=== PATIENT | female | born 1965 | race African-American/Black ===

== ENCOUNTER 2020-08-08 08:14 | Emergency (ER) | payer BC ==
[~2020-08-08] VITALS: Ht 162.6 cm; Wt 77.1 kg
[2020-08-08] MEDS ORDERED: NORVASC5 MG PO (09:06)
[2020-08-08] MEDS ORDERED: PROAIR HFA8.5 GM INH (09:06)
[2020-08-08] MEDS ORDERED: HYDROCHLOROTH12.5 M1 PO ×2 (09:06→11:07)
[2020-08-08 09:35] LABS: ABSOLUTE NEUTROPHILS 4.1 thou/uL (1.4-8.2); BASOPHILS 1.3 % (0.0-2.0); EOSINOPHILS 1.9 % (0.0-3.0); HEMATOCRIT 39.4 % (37.0-47.0); HEMOGLOBIN 13.2 gm/dL (12.0-15.0); LYMPHOCYTES 37.7 % (24.0-44.0); MCHC 33.4 g/dL (28.0-37.0); MCV 92.8 fL (80.0-100.0); MONOCYTES 6.5 % (1.0-8.0); PLATELET COUNT 262 thou/uL (150-400); POLYS 52.6 % (36.0-66.0); RBC 4.25 mil/uL (4.20-5.00); RDW 13.1 % (10.5-14.5); WBC 7.7 thou/uL (4.0-11.0)
[2020-08-08 10:34] LABS: ANION GAP 10 mmol/L (7-16); BUN 17 mg/dL (7-18); CALCIUM 9.5 mg/dL (8.5-10.1); CHLORIDE 101 mmol/L (98-107); CO2 28 mmol/L (21-32); GLUCOSE 123 mg/dL (74-106); POTASSIUM 3.6 mmol/L (3.5-5.1); SODIUM 139 mmol/L (136-145)
[2020-08-08 10:44] LABS: ALBUMIN 4.1 g/dL (3.4-5.0); DIRECT BILIRUBIN 0.1 mg/dL (<0.1-0.2); SGOT 79 U/L (15-37); SGPT 61 U/L (14-59); TOTAL BILIRUBIN 0.4 mg/dL (0.2-1.0); TOTAL PROTEIN 8.4 g/dL (6.4-8.2); TROPONIN-I <0.06 ng/mL (<0.06)
[2020-08-08 11:32] VITALS: BP 163/79
--- NOTE | 2020-08-08 14:44 | EKG ---
[address] [address] ELECTROCARDIOGRAM REPORT Name: BRIDGETT TABOR Room #: [facility] FELIZ [place]#: [id number] Admission: 08/08/20 Attend Phys: Discharge: 08/08/20 Date of : 61 Report #: [id number] [facility] ED Test Date: 2020-08-08 Test Time: 08:23:43 Pat Name: BRIDGETT TABOR Department: Room: Gender: F Bar Assistant: CHARI : 1965 Requested By: Irene Nichole Order Number: [id number] MD: Rony Bajwa Measurements Intervals [place] Rate: 83 P: 87 CA: 155 QRS: 50 QRSD: 82 T: 24 QT: 375 QTc: 441 Interpretive Statements Sinus rhythm Probable left atrial enlargement No previous ECG available for comparison Electronically Signed On 08-08-2020 14:43:59 CDT by Rony Bajwa [email or web address] <ELECTRONICALLY SIGNED> By: Rony Bajwa MD, [facility] 08/08/20 1443 0823 2 Rony Bajwa MD, FACC /EPI
== END 2020-08-08 11:32 | disposition home or self-care (01) ==
LOC: ER 08:14
PROVIDERS: Emergency Medicine
DX: I10 Essential (primary) hypertension (principal); K21.9 Gastro-esophageal reflux disease without esophagitis; Z79.899 Other long term (current) drug therapy